=== PATIENT | male | born 1990 ===

== ENCOUNTER → 2020-04-20 | Outpatient (CLI) | payer OTHER | LOC: COL.RAD 10:11 | DX: S06.9X9A Unspecified intracranial injury with loss of consciousness of unspecified duration, initial encounter (principal); H53.9 Unspecified visual disturbance ==

== ENCOUNTER → 2020-05-11 | Outpatient (CLI) | payer OTHER | LOC: COL.CARD 12:24 | DX: S06.9X9A Unspecified intracranial injury with loss of consciousness of unspecified duration, initial encounter (principal); H53.9 Unspecified visual disturbance ==